=== PATIENT | male | born 1950 | race Hispanic/Latino ===

== ENCOUNTER 2017-01-05 07:50 | Day surgery (SDC) | payer BC ==
--- NOTE | 2016-12-28 11:43 | Anesthesia Consultation ---
Anesthesia Consult and Med Hx Date of service: 12/28/16 (Scheduled for Right knee replacement on 01/05/[address] Castillo) - Airway Anesthetic Teeth Evaluation: Good ROM Head & Neck: Adequate Mental/Hyoid Distance: Adequate Mallampati Class: Class II Intubation Access Assessment: Probably Good - Pulmonary Exam CTA: Yes - Cardiac Exam Cardiac Exam: RRR - Pre-Operative Health Status ASA Pre-Surgery Classification: ASA2 Proposed Anesthetic Plan: General - Pre-Anesthesia Comment Pre-Anesthesia Comments: No previous anesthesia complicaitons. Pt had successful RT TKR in 2013. Medical clearance on chart. - Pulmonary Hx Smoking: Yes (1/2 PPD X 42 YEARS) Hx Sleep Apnea: No - Cardiovascular System Hx Hypertension: Yes (6 YRS) - Central Nervous System Hx Psychiatric Problems: No - Endocrine Hx Non-Insulin Dependent Diabetes: No - Other Systems Hx Alcohol Use: Yes Hx Substance Use: No Hx Cancer: Yes (BASAL CELL CARCINOMA REMOVED ) Hx Obesity: No
[~2017-01-05 07:50] MED LIST: LACTATED RINGERS 1,000 ML IV SCH; PEPCID PO NR; VERSED IV NR
[2017-01-05] MEDS: LACTATED RINGERS 1,000 ML IV SCH ×2 (08:20→09:32)
[2017-01-05] MEDS ORDERED: TRANEXAMIC ACID ONE ×2 (08:43→08:44)
[2017-01-05] MEDS ORDERED: NEOSPORIN GU IR ONE ×3 (08:45→12:22)
[2017-01-05] MEDS ORDERED: MARCAINE-EPI/PF 0.5%-1:200,000 INFILTRATI ONE (08:46)
[2017-01-05 08:52] LABS: Eosinophils % (Auto) 2.1 % (0.0-4.3); Hematocrit 45.3 % (35.5-45.6); Hemoglobin 15.4 gm/dl (11.8-15.2); Mean Corpuscular HGB Conc 34 % (32-34); Mean Corpuscular Hemoglobin 30 pg (28-32); Mean Corpuscular Volume 89 fl (84-94); Platelet Count 347 K/mm3 (140-440); Red Blood Count 5.08 M/mm3 (3.65-5.03); Red Cell Distribution Width 14.1 % (13.2-15.2); White Blood Count 6.2 K/mm3 (4.5-11.0)
[2017-01-05] MEDS ORDERED: DECADRON ONE (08:52)
[2017-01-05] MEDS ORDERED: CLONIDINE 1,000 MCG/10 ML VIAL EP ONE (08:52)
[2017-01-05] MEDS ORDERED: MARCAINE-EPI 0.5%-1:200,000 INFILTRATI ONE ×3 (08:53→10:57)
--- NOTE | 2017-01-05 08:54 | Anesthesia Day of Surgery ---
Anesthesia Day of Surgery - Day of Surgery Patient H&P Reviewed: Yes Patient is NPO: Yes
[2017-01-05] MEDS ORDERED: VERSED IV NR (09:00)
[2017-01-05] MEDS ORDERED: NEURONTIN PO NR (09:00)
[2017-01-05] MEDS ORDERED: ANCEF/STERILE WATER 2 GM/20 ML IV NR (09:00)
[2017-01-05] MEDS ORDERED: XYLOCAINE MPF 2% ONE ×3 (10:19→12:57)
[2017-01-05] MEDS ORDERED: DIPRIVAN 10 MG/ML IV ONE ×3 (10:21→13:00)
[2017-01-05] MEDS ORDERED: TRANEXAMIC ACID IV ONE (10:30)
[2017-01-05] MEDS ORDERED: NACL 0.9% IV ONE (10:30)
[2017-01-05] MEDS ORDERED: NACL 0.9% IR ONE ×2 (11:00→11:25)
[2017-01-05] MEDS ORDERED: NACL 0.9% 100 ML ONE ×2 (12:57)
--- NOTE | 2017-01-05 13:36 | Operative Report ---
PREOPERATIVE DIAGNOSIS: Right knee DJD. POSTOPERATIVE DIAGNOSIS: Right knee DJD. PROCEDURE PERFORMED: Right knee unicompartmental arthroplasty, utilizing [employer] system, size median cemented femur, size cemented tibia, 3 mm polyethylene insert. SURGEON: Ortiz Castillo M.D. [employer] SUPERVISOR: Avery Nilesen CSA. ANESTHESIA: Spinal, epidural with adductor block. ESTIMATED BLOOD LOSS: Minimal. COMPLICATIONS: None. DESCRIPTION OF PROCEDURE: The patient underwent successful induction of anesthesia. Carefully positioned in a leg easton, prepped and draped in usual fashion. Antibiotics and tranexamic acid were pre-administered. Exsanguinated and tourniquet inflated. Standard median parapatellar incision was utilized with arthrotomy performed. Patellofemoral and lateral compartments were well preserved as was the ACL. Medial compartment ankylosis noted. Standard technique was then utilized with triplanar alignment to resect the proximal tibia with an extramedullary guide. All osteophytes were removed. The posterior cut made on the femur with the gaps balanced utilizing the spigot reamers. All excess tissue menisci removed, excellent fit fixation was noted with the sizes of the implant which were then placed. He had full range of motion and excellent stability noted with the 3 mm implant and alignment. The wounds once again irrigated. Tourniquet released. No significant bleeding encountered. Arthrotomy reapproximated with Ethibond sutures followed by Vicryl and Monocryl for the skin and sterile island dressing applied, taken to the recovery room in satisfactory condition, having tolerated the procedure well. [facility]# [id number]/LYUBOV
--- NOTE | 2017-01-05 14:02 | Admit Criteria Form ---
Admission Criteria Documentation: AMBULATORY SURGERY EXCEPTION CRITERIA Ambulatory Surgery Exception Criteria ( Place 'X' for any and all applicable criteria): Surgery or procedure performed on ambulatory basis may require inpatient stay for[A] ANY ONE of the following(1)(2)(3)(4)(5)(6)(7)(8)(9): [X] I. A preoperative situation, condition, or finding that warrants inpatient stay as indicated by ANY ONE of the following: [] a) Inpatient care needed because of severity of a disease or condition rather than the surgery (eg, severe cardiac or respiratory disease, severe infection) (15) (16 ) (17) (18) [] b) Emergent procedure (eg, angioplasty for acute ischemia)(19) [] c) Complex surgical approach or situation as indicated by ANY ONE of the following(3): [] i) Open approach needed instead of usual endoscopic, transcatheter, or other less invasive procedure [] ii) Difficult approach because of previous operation [] iii) Airway monitoring required after open neck procedures(20)(21) [] iv) Large mass requiring unusually extensive dissection [] v) Additional complicating feature requiring inpatient care (eg, drain management)(22(23): [] d) Major surgery in a pt with high anesthetic risk as indicated by ANY ONE of the following (2)(3)(5)(7)(8): [] i) ASA risk class III or higher (severe systemic disease impairing function) [D] [] ii) Advanced age (eg, older than 85 years)(14)(24) [] iii) Symptomatic heart failure(25) [] iv) Symptomatic asthma or COPD(8)(21) [] v) Morbid obesity with hemodynamic or respiratory problems(20)( 21)(26)(27) [] vi) Obstructive sleep apnea(20)(21) [] vii) Former premature infants who are younger than 60 weeks [] viii) High risk for severe postoperative abnormalities (eg, severe postoperative hypocalcemia after parathyroidectomy for severe hyperparathyroidism)(27)( 28) [] ix) Unstable angina(25) [] e) Drug-related risk requiring inpatient stay as indicated by ANY ONE of the following(5)(10)(14)(32)(33) [] i) Procedure requires discontinuing drugs or other therapy (eg , antiarrhythmic medication, antiseizure medication), which necessitates inpatient observation or treatment.(18)(31) [] ii) Major surgery and high risk drug use as indicated by ANY ONE of the following: [] 1) Active abuse of cocaine or similar drug [] 2) Monoamine oxidase inhibitor use [] 3) Other drug identified as posing risk [] f) Inadequate outpatient care situation as indicated by ANY ONE of the following(5)(10)(14)(32)(33) [] i) Patient lives remote from medical facility and procedure has urgent complication potential, and temporary nearby residence cannot be arranged [] ii) Patient will have postprocedure incapacitation and inadequate assistance at home, or alternative level of care cannot be arranged. [] iii) Patient will have long general anesthesia or procedure side effect resolution time, and competent person to stay with patient on first postoperative night at home or alternative level of care cannot be arranged. []iv) Other inadequate outpatient situation that cannot be handled by other means [] II. A perioperative event, condition, or finding that warrants inpatient stay as indicated by ANY ONE of the following (1)(2)(3): [] a) Inadequate physiologic recovery: cardiovascular, respiratory, or hemodynamic status not normal or near preoperative baseline(18) [] b) Hemodynamic instability [] c) Patient not alert with near normal or baseline mental status [] d) Temperature not normal or as expected and not appropriate for outpatient treatment of condition [] e) Ambulatory or appropriate activity level status not yet achieved post procedure [E](34)(35)(36) [] f) Operative site not appropriate (eg, unexpected or excessive drainage or bleeding) [] g) Postoperative effects not resolved or adequately managed (eg, significant pain or vomiting not appropriate for outpatient or next level of care)(10)(12) [] h) Complicating features requiring inpatient care as indicated by ANY ONE of the following(37): [] i) Severe complications of procedure (eg, bowel injury, airway compromise, vascular injury,severe hemorrhage) [] ii) Extensive (eg, dissection far beyond usual scope of procedure ) or prolonged (eg, 120 minutes beyond usual) surgery needed requiring inpatient postoperative care [] iii) Conversion to an open or complex procedure that requires inpatient care (eg, open vs laparoscopic cholecystectomy, abdominal vs vaginal hysterectomy)(38) [] iv) Comorbid condition or test result identified during or post procedure that requires inpatient care (7) [] v) Malignant hyperthermia(30) [] vi) Other complicating feature requiring inpatient care(22)(23) Inpatient stay may be needed until ALL of the following are present (1)(2)(3)(4) (5)(6)(10)(14)(33)(40): []a) Physiologic recovery: cardiovascular, respiratory, and hemodynamic status normal or near preoperative baseline []b) Hemodynamic stability []c) Patient alert, with near normal or baseline mental status []d) Temperature appropriate: patient afebrile or temperature appropriate for outpt treatment of condition []e) Activity level appropriate: ambulatory or appropriate activity level post procedure []f) Operative site appropriate as indicated by ALL of the following: []i) Site dry or with expected drainage []ii) Any blood noted is as expected for procedure. []g) Postoperative effects resolved or managed as indicated by ALL of the following: []i) Pain management appropriate for outpatient (or next level of) care(10) []ii) Minimal nausea and vomiting: if present, successfully treated with oral medication(12) []iii) Headache, dizziness, or drowsiness (if present) are mild. []h) Voiding status acceptable as indicated by ANY ONE of the following: []i) Voiding spontaneously []ii) No voiding but instructions given for follow-up in 6 to 8 hours []iii) Urinary catheter in place, and instructions given for follow-up []i) Complicating features requiring inpatient care manageable at a lower level of care(37) []j) Comorbid conditions manageable at a lower level of care(37) The original [employer] content created by [employer] has been revised. The portions of the content which have been revised are identified through the use of italic text or in bold, and [employer] has neither reviewed nor approved the modified material. All other unmodified content is copyright [employer]. Please see references footnoted in the original [employer] edition 2016
[2017-01-05 15:24] VITALS: BP 129/87
== END 2017-01-05 16:10 | disposition home or self-care (01) ==
LOC: OR 07:50
PROVIDERS: ATTEND Orthopaedic Surgery
DX: M17.11 Unilateral primary osteoarthritis, right knee (principal); I10 Essential (primary) hypertension; F17.210 Nicotine dependence, cigarettes, uncomplicated; Z72.89 Other problems related to lifestyle; Z85.828 Personal history of other malignant neoplasm of skin
CPT/HCPCS: 27446; 36415; 62324; 64450; 85025; 86850; 86900; 86901; 88305; A4217; C1776; J0690; J0735; J1100; J2250; J2704; J7120